=== PATIENT | male | born 1965 | race Caucasian/White ===

== ENCOUNTER 2018-01-20 16:20 | Emergency (ER) | payer MEDICARE, OTHER ==
[2018-01-20] MEDS: HYDROCODONE/APAP (5/325) TAB PO (16:58)
== END 2018-01-20 17:30 | disposition home or self-care (01) ==
LOC: E/R 16:20
DX: M94.0 Chondrocostal junction syndrome [Tietze] (principal); I10 Essential (primary) hypertension
CPT/HCPCS: 99283